=== PATIENT | female | born 1990 | race Caucasian/White ===

== ENCOUNTER 2017-04-19 11:55 | Outpatient (CLI) | payer MEDICAID, OTHER ==
[~2017-04-19] VITALS: Ht 152.4 cm; Wt 91.5 kg
[~2017-04-19 11:55] MED LIST: PREN1TAB82
[2017-04-19 12:32] VITALS: Ht 152.4 cm; Wt 91.5 kg
[2017-04-19 12:33] VITALS: BP 112/66; PULSE 88; RESP 18
--- NOTE | 2017-04-19 13:44 | RADRPT ---
PROCEDURE: US OB. CLINICAL INDICATION: Size and dates , PTL TECHNIQUE: Multiple sonographic images of the pelvis and gravid uterus were obtained. The images were reviewed on a PACS workstation. COMPARISON: No prior studies are available for comparison. FINDINGS: There is a single viable intrauterine gestation. Cardiac activity is present with 125 beats per min vega. There is a vertex presentation. The placenta is posterior. There is no evidence for an abruption or placenta previa. Measurements were made in order to determine age. The results are as follows: BPD =8.0 cm HC =28.3 cm AC =28.3 cm FL =6.1 cm Estimated gestational age of approximately 31 weeks and 6 days based on ultrasound measurements. Clinical age: 31 weeks and 4 days. The estimated date of delivery is 06/15/17, based on ultrasound measurements. The EFW = 1880 g, 52%, based on LMP age. RPTAT: AA IMPRESSION: Single viable intrauterine gestation of approximately 31 weeks and 6 days based on ultrasound measu rements. .Trell Lugo MD, MD Date Time Electronically viewed and signed by .Trell Lugo MD, on 04/19/2017 13:44 .S/
--- NOTE | 2017-04-19 13:49 | RADRPT ---
PROCEDURE: US OB biophysical profile. Ultrasound cervix CLINICAL INDICATION: decreased movements, PTL TECHNIQUE: Multiple sonographic images of the pelvis were obtained. In addition, transvaginal cherelle ges of the cervix were obtained. The images were reviewed on a PACS workstation. COMPARISON: No prior studies are available for comparison. FINDINGS: There is a single viable intrauterine gestation. Cardiac activity is present with 125 beats per justen te. There is a vertex presentation. The placenta is posterior. There is no evidence for an abruption or placenta previa. There is a normal amount of amniotic fluid with an MARY ALICE = 13.7 cm. The cervix measures 3..7 cm in length. Biophysical profile: movement 2/2 tone 2/2. breathing 2/2 MARY ALICE 2/2 Total 02/08 RPTAT: AA . IMPRESSION: Normal biophysical profile. Cervix measures 3.7 cm in length. .Trell Lugo MD, MD Date Time Electronically viewed and signed by .Trell Lugo MD, MD on 04/19/2017 13:49 .S/
--- NOTE | 2017-04-19 15:12 | TRIAGE ---
OB Triage Datetime Report Generated by CPN: 04/19/2017 15:12 Datetime: 04/19/2017 14:30 Stage of : OB Triage Maternal Assessment Level of Consciousness: Fully Conscious Labor Evaluation Frequency: NONE Monitor Mode: External Resting Tone [place]: Relaxed Heart Rate FHR Baseline Rate: 125 Monitor Mode: External US Variability: Moderate 6-25 bpm Accelerations: 15X15 Decelerations: None Pain Assessment Pain Scale: 7 Pain Presence: Constant Pain Type: Pressure Pain Location: Perineum Pain Goal: 3 Pain Relief Measures: Comfort Measures Vaginal Exam Membrane Status: Intact Vaginal Bleeding: None Datetime: 04/19/2017 13:30 Stage of : OB Triage Maternal Assessment Level of Consciousness: Fully Conscious Labor Evaluation Frequency: NONE Monitor Mode: External Resting Tone [place]: Relaxed Heart Rate FHR Baseline Rate: 125 Monitor Mode: External US Variability: Moderate 6-25 bpm Accelerations: 15X15 Decelerations: None Category: Category I Pain Assessment Pain Scale: 7 Pain Presence: Constant Pain Type: Pressure Pain Location: Perineum Pain Goal: 3 Pain Relief Measures: Comfort Measures Vaginal Exam Membrane Status: Intact Vaginal Bleeding: None Datetime: 04/19/2017 13:00 Pool: Negative Nitrazine: Negative Datetime: 04/19/2017 12:18 Stage of : OB Triage Assessment Type: Triage Maternal Assessment Level of Consciousness: Fully Conscious DTR's/Clonus: DTRs 2+; No Clonus Headache: Denies Blurred Vision: No Respiratory Effort: Unlabored; Regular Rhythm; Equal Expansion Breath Sounds, Left: Clear and Equal Breath Sounds, Right: Clear and Equal Nausea/Vomiting: Denies RUQ Epigastric Pain: Denies Lower Extremities Edema: Bilateral Lower Extremities Degree: 1+ Upper Extremities Edema: Bilateral Upper Extremities Degree: 1+ Facial Edema: None Temperature Route: Oral Fall Risk Assessment History of Falling: (0) No Secondary Diagnosis: (0) No Ambulatory Aid: (0) Bedrest/Nurse Assist IV Therapy: (0) No Gait: (0) Normal/Bedrest/Immobile Mental Status: (0) Oriented to Own Ability Fall Score: 0 Fall Risk Score Definition: No Risk: No action required Pain Assessment Pain Scale: 7 Pain Presence: None/Denies Pain Type: N/A Pain Location: Abdomen; Back; Perineum Pain Goal: 5 Datetime: 04/19/2017 12:12 Time of Arrival: 04/19/2017 12:12 EGA: 31.4 Arrived By: Ambulatory Arrived From: Home Movement: Present Contractions: Denies/Absent Rupture of Membranes: Unsure Vaginal Bleeding: None Vaginal Discharge: Present Recent Sexual Intercouse: Denies Abdominal Trauma: Not Applicable Patient Complaints: Back Pain; Other Time Provider Notified: 04/19/2017 12:44 Provider Notified: KEVAN Initial Plan: EFM, BPP, CVL, EFW, ROM PLUS, STERILE SPEC, NITRAZINE
--- NOTE | 2017-06-07 16:02 | PN ---
Triage Information Date/Time Reason for visit: Uterine contractions Weeks of Gestation 31 week 31 week /Para Diabetes: none Hypertention: none Objective Heart Rate: 130's Contractions: 6-10 Minutes Apart Exam Cervical length 3.7 MARY ALICE 13.7 BLADIMIR MATHUR MD Jun 07, 2017 16:02
== END 2017-04-19 15:15 | disposition home or self-care (01) ==
LOC: L-D 11:55 → OBT 11:55
PROVIDERS: ATTEND Obstetrics & Gynecology
DX: O62.9 Abnormality of forces of labor, unspecified (principal); Z3A.31 31 weeks gestation of pregnancy
CPT/HCPCS: 76815; 76817; 76818; 84112; Z7500; G0463

== ENCOUNTER 2017-05-21 20:24 | Outpatient (CLI) | payer OTHER ==
[~2017-05-21] VITALS: Ht 152.4 cm; Wt 99.4 kg
[2017-05-21 21:00] VITALS: BP 130/75; PULSE 96; RESP 18
[2017-05-21] MEDS ORDERED: LACTATED RINGER'S 1,000 ML IV SCH (21:16)
[2017-05-21] MEDS ORDERED: HYDROCODONE/APAP (5/325) TAB PO ONE (21:30)
[2017-05-21] MEDS ORDERED: ACETAMINOPHEN 1000MG/100ML IV 100 ML IVPB ONE (21:30)
[2017-05-21 21:46] LABS: BASOPHILS % 0.3 % (0.0-2.0); EOSINOPHILS # 0.1 10^3/ul (0.0-0.5); EOSINOPHILS % 1.7 % (0.0-7.0); HEMATOCRIT 34.5 % (37.0-47.0); HEMOGLOBIN 11.7 g/dl (12.0-16.0); LYMPHOCYTES # 1.6 10^3/ul (0.8-2.9); MEAN CORPUSCULAR HEMOGLOBIN 30.2 pg (29.0-33.0); MEAN CORPUSCULAR HGB CONC 33.9 g/dl (32.0-37.0); MEAN CORPUSCULAR VOLUME 88.9 fl (82.0-101.0); MEAN PLATELET VOLUME 11.2 fl (7.4-10.4); MONOCYTE # 0.5 10^3/ul (0.3-0.9); MONOCYTES % 7.8 % (0.0-11.0); NEUTROPHIL # 4.3 10^3/ul (1.6-7.5); NEUTROPHILS % 65.1 % (39.0-77.0); PLATELET COUNT 200 10^3/UL (140-415); RED BLOOD COUNT 3.88 10^6/ul (4.20-5.40); RED CELL DISTRIBUTION WIDTH 13.1 % (11.5-14.5); WHITE BLOOD COUNT 6.5 10^3/ul (4.8-10.8)
[2017-05-21 21:58] LABS: ADD UMIC YES; UR ASCORBIC ACID NEGATIVE (NEGATIVE); UR BACTERIA MODERATE /HPF (NONE SEEN); UR BILIRUBIN (Dip) NEGATIVE (NEGATIVE); UR BLOOD (Dip) NEGATIVE (NEGATIVE); UR CLARITY SLIGHTLY CLOUDY (CLEAR); UR COLOR YELLOW (YELLOW); UR GLUCOSE (Dip) 2+ mg/dL (NEGATIVE); UR KETONES (Dip) TRACE mg/dL (NEGATIVE); UR LEUKOCYTE ESTERASE (Dip) TRACE Leu/ul (NEGATIVE); UR NITRITE (Dip) NEGATIVE (NEGATIVE); UR RBC 1 /HPF (0-5); UR SPECIFIC GRAVITY (Dip) 1.013 (1.003-1.030); UR SQUAMOUS EPITHELIAL CELL FEW /HPF (FEW); UR TOTAL PROTEIN (Dip) NEGATIVE (NEGATIVE); UR UROBILINOGEN (Dip) 1+ mg/dL (NEGATIVE)
[2017-05-21] MEDS ORDERED: SOD CHLORIDE 0.9% 1,000 ML IV SCH (22:59)
[2017-05-21] MEDS ORDERED: CEFTRIAXONE 1 GM/50 ML (PMX) 50 ML IVPB ONE (23:00)
--- NOTE | 2017-05-22 00:26 | PN ---
Triage Information Date/Time May 22, 2017 Reason for visit: Headache, back pain, chest pain Weeks of Gestation 36w 2d /Para 2/1 Diabetes: none Hypertention: none Additional information Pt reports a runny nose, throat hurting, body aches today. She rated the pain at 7/10 on admit but states if she wasn't that she wouldn't have come in or taken anything. No nausea or vomiting or diarrhea. She also reports some swelling of the hand and they get numb at night when she is sleeping. PMHx: none. POBHx: x 1 and she had PIH. PSHx: none. NKDA. Objective Vital Signs Date Time Temp Pulse Resp B/P Pulse Ox O2 Delivery O2 Flow Rate FiO2 05/21/17 21:00 98.1 96 18 130/75 Room Air Intake and Output 05/21/17 05/21/17 05/22/17 14:59 22:59 06:59 Intake Total 500 ml 600 ml Balance 500 ml 600 ml Heart Rate: 130's Heart Rate Comments Accels to 170 bpm with no decels. Contractions: 6-10 Minutes Apart Exam closed/thick/high Results/Medications Result Diagram: 05/21/172131 Results 24 hrs Laboratory Tests Test 05/21/17 21:32 White Blood Count 6.5 Red Blood Count 3.88 L Hemoglobin 11.7 L Hematocrit 34.5 L Mean Corpuscular Volume 88.9 Mean Corpuscular Hemoglobin 30.2 Mean Corpuscular Hemoglobin Concent 33.9 Red Cell Distribution Width 13.1 Platelet Count 200 Mean Platelet Volume 11.2 H Neutrophils % 65.1 Lymphocytes % 24.0 Monocytes % 7.8 Eosinophils % 1.7 Basophils % 0.3 Nucleated Red Blood Cells % 0.0 Neutrophils # 4.3 Lymphocytes # 1.6 Monocytes # 0.5 Eosinophils # 0.1 Basophils # 0.0 Nucleated Red Blood Cells # 0.0 Urine Color YELLOW Urine Clarity SLIGHTLY CLOUDY A Urine pH 6.0 Urine Specific [place] 1.013 Urine Ketones TRACE A Urine Nitrite NEGATIVE Urine Bilirubin NEGATIVE Urine Urobilinogen 1+ H Urine Leukocyte Esterase TRACE A Urine Microscopic RBC 1 Urine Microscopic WBC 3 Urine Squamous Epithelial Cells FEW Urine Bacteria MODERATE Urine Hemoglobin NEGATIVE Urine Glucose 2+ H Urine Total Protein NEGATIVE Disposition: Discharge Assessment/Plan A: IUP at 36w 2d. Viral syndrome. P: Gave pt a liter of IVF's and one gram of IV Tylenol and the pt reported feeling much better. She was reassured that she has no signs of PIH at this time and so therefore the hand swelling is fairly normal in . U/A c/w possibly with a UTI so given one dose of IV Ancef and told pt to have her clinic check the cx results at her next visit. MARK BRAND MD May 22, 2017 00:26
--- NOTE | 2017-05-22 00:36 | TRIAGE ---
OB Triage Datetime Report Generated by CPN: 05/22/2017 00:35 Datetime: 05/22/2017 00:08 Stage of : OB Triage Pain Assessment Comments: PT STATES SHE FEEL MUCH BETTER Datetime: 05/22/2017 00:00 Labor Evaluation Frequency: 2-5 Monitor Mode: External Duration (sec)2399: 90-120 Quality: Mild Pattern: Normal: <= 5 Contractions in 10 Minutes Resting Tone [place]: Relaxed Heart Rate FHR Baseline Rate: 135 Monitor Mode: External US FHR Baseline Changes: No Baseline Change Variability: Moderate 6-25 bpm Accelerations: 15X15 Decelerations: None Category: Category I Datetime: 05/21/2017 23:00 Labor Evaluation Frequency: 2-8 Monitor Mode: External Duration (sec)2399: 90-120 Quality: Mild Pattern: Normal: <= 5 Contractions in 10 Minutes Resting Tone [place]: Relaxed Heart Rate FHR Baseline Rate: 125 Monitor Mode: External US FHR Baseline Changes: No Baseline Change Variability: Moderate 6-25 bpm Accelerations: 15X15 Decelerations: None Category: Category I Datetime: 05/21/2017 22:33 Stage of : OB Triage Datetime: 05/21/2017 22:00 Labor Evaluation Frequency: 2-7 Monitor Mode: External Duration (sec)2399: 40-120 Quality: Mild Pattern: Normal: <= 5 Contractions in 10 Minutes Resting Tone [place]: Relaxed Heart Rate FHR Baseline Rate: 135 Monitor Mode: External US FHR Baseline Changes: No Baseline Change Variability: Moderate 6-25 bpm Accelerations: 15X15 Decelerations: None Category: Category I Datetime: 05/21/2017 21:00 Labor Evaluation Frequency: 4-6 Monitor Mode: External Duration (sec)2399: 90-120 Quality: Mild Pattern: Normal: <= 5 Contractions in 10 Minutes Resting Tone [place]: Relaxed Heart Rate FHR Baseline Rate: 135 Monitor Mode: External US FHR Baseline Changes: No Baseline Change Variability: Moderate 6-25 bpm Accelerations: 15X15 Decelerations: None Category: Category I Vaginal Exam Dilatation (cms): 0.0 Effacement (%): 0 Station: -3 Exam By: Haroldo PARKER RN Vaginal Bleeding: None Cervix, Consistency: Firm Cervix, Position: Posterior Datetime: 05/21/2017 20:32 Stage of : OB Triage Maternal Assessment Level of Consciousness: Fully Conscious DTR's/Clonus: DTRs 2+; No Clonus Headache: Denies Blurred Vision: No Respiratory Effort: Unlabored; Regular Rhythm; Equal Expansion Breath Sounds, Left: Clear and Equal Breath Sounds, Right: Clear and Equal Nausea/Vomiting: Denies RUQ Epigastric Pain: Denies Lower Extremities Edema: Bilateral Lower Extremities Degree: 2+ Upper Extremities Edema: None Degree: None Facial Edema: None Temperature Route: Oral Fall Risk Assessment History of Falling: (0) No Secondary Diagnosis: (0) No Ambulatory Aid: (0) Bedrest/Nurse Assist IV Therapy: (0) No Gait: (0) Normal/Bedrest/Immobile Mental Status: (0) Oriented to Own Ability Fall Score: 0 Fall Risk Score Definition: No Risk: No action required Monitor Mode: External Monitor Mode: External US Pain Assessment Pain Presence: Constant Pain Type: Pressure (Annotations: HEADACHE FEELS LIKE PRESSURE BACK ACHE FEELS LIKE ACHING) Pain Location: Back; Head Datetime: 05/19/2017 08:57 Time of Arrival: 05/21/2017 20:32 EGA: 36.1 Arrived By: Wheelchair Arrived From: Home Chief Complaint: FLU Movement: Present Contractions: Irregular Rupture of Membranes: Denies Vaginal Bleeding: None Vaginal Discharge: Denies Recent Sexual Intercouse: Denies Abdominal Trauma: Not Applicable Patient Complaints: None Time Provider Notified: 05/21/2017 21:05 Provider Notified: DR BRAND Initial Plan: CALL TL POE Datetime: 04/19/2017 12:18 Fall Score: 0 Fall Risk Score Definition: No Risk: No action required Datetime: 04/19/2017 12:12 EGA: 31.4
--- NOTE | 2017-05-22 00:42 | TRIAGE ---
OB Triage Datetime Report Generated by CPN: 05/22/2017 00:42 Datetime: 05/19/2017 08:57 Chief Complaint: FLU= HEADACHE 04/12, THROAT HURTS/ RUNNY NOSE/ BACK PAIN 01/10, UPPER CHEST HURTS PT STATES SHE CAN'T BREATH/ NO C/O OF EPIGASTRIC PAIN OR DIZZYNESS
--- NOTE | 2017-05-22 00:45 | TRIAGE ---
OB Triage Datetime Report Generated by CPN: 05/22/2017 00:45 Datetime: 05/21/2017 20:32 Time of Arrival: 05/21/2017 20:32 EGA: 36.1 Arrived By: Wheelchair Arrived From: Home Chief Complaint: FLU= HEADACHE 04/12, THROAT HURTS/ RUNNY NOSE/ BACK PAIN 01/10, UPPER CHEST HURTS PT STATES SHE CAN'T BREATH/ NO C/O OF EPIGASTRIC PAIN OR DIZZYNESS Movement: Present Contractions: Irregular Rupture of Membranes: Denies Vaginal Bleeding: None Vaginal Discharge: Denies Recent Sexual Intercouse: Denies Abdominal Trauma: Not Applicable Patient Complaints: None Time Provider Notified: 05/21/2017 21:05 Provider Notified: DR BRAND Initial Plan: CALL , EFM Fall Score: 0 Fall Risk Score Definition: No Risk: No action required
[2017-05-23] MEDS ORDERED: LACTATED RINGER'S 1,000 ML IV SCH (21:16)
== END 2017-05-22 00:13 | disposition home or self-care (01) ==
LOC: L-D 20:24 → OBT 20:24
PROVIDERS: ATTEND Obstetrics & Gynecology
DX: O98.513 Other viral diseases complicating pregnancy, third trimester (principal); Z3A.36 36 weeks gestation of pregnancy
CPT/HCPCS: 36415; 81001; 85025; 87086; 96360; 96361; 96375; J0131; J0696; J7030; J7120; Z7500; G0463

== ENCOUNTER 2017-05-27 03:40 | Outpatient (CLI) | payer OTHER ==
[~2017-05-27] VITALS: Ht 152.4 cm; Wt 100.3 kg
[2017-05-27 04:18] VITALS: BP 122/69; PULSE 106; RESP 18
[2017-05-27 04:50] LABS: BASOPHILS % 0.4 % (0.0-2.0); EOSINOPHILS # 0.1 10^3/ul (0.0-0.5); EOSINOPHILS % 1.4 % (0.0-7.0); HEMATOCRIT 33.5 % (37.0-47.0); HEMOGLOBIN 11.4 g/dl (12.0-16.0); LYMPHOCYTES # 1.9 10^3/ul (0.8-2.9); LYMPHOCYTES % 23.4 % (15.0-51.0); MEAN CORPUSCULAR HEMOGLOBIN 30.3 pg (29.0-33.0); MEAN CORPUSCULAR VOLUME 89.1 fl (82.0-101.0); MEAN PLATELET VOLUME 11.3 fl (7.4-10.4); MONOCYTE # 0.6 10^3/ul (0.3-0.9); NEUTROPHIL # 5.2 10^3/ul (1.6-7.5); NEUTROPHILS % 66.3 % (39.0-77.0); PLATELET COUNT 211 10^3/UL (140-415); RED BLOOD COUNT 3.76 10^6/ul (4.20-5.40); RED CELL DISTRIBUTION WIDTH 13.5 % (11.5-14.5); WHITE BLOOD COUNT 7.9 10^3/ul (4.8-10.8)
--- NOTE | 2017-05-27 04:50 | RADRPT ---
PROCEDURE: Biophysical profile with amniotic fluid index CLINICAL INDICATION: Contractions TECHNIQUE: Color and seo-scale ultrasound images of an intrauterine gestation were obtained. COMPARISON: 05/25/2017 FINDINGS: A single live intrauterine gestation is identified in cephalic position with an estimated hear t rate of 128 beats per minute. The placenta is posterior and grade 2. MARY ALICE is 14.1 cm. movement 2/2. tone 2/2. breathing movement 2/2. Qualitative AFV 2/2 Total biophysical profile 02/08 IMPRESSION: 02/08 biophysical profile. RPTAT: HJES .Mushtaq Bates MD, Date Time Electronically viewed and signed by .Mushtaq Bates MD, on 05/27/2017 04:50 .S/
[2017-05-27 04:53] LABS: ADD UMIC YES; UR ASCORBIC ACID NEGATIVE (NEGATIVE); UR BACTERIA MODERATE /HPF (NONE SEEN); UR BILIRUBIN (Dip) NEGATIVE (NEGATIVE); UR BLOOD (Dip) NEGATIVE (NEGATIVE); UR CLARITY SLIGHTLY CLOUDY (CLEAR); UR COLOR YELLOW (YELLOW); UR GLUCOSE (Dip) NEGATIVE (NEGATIVE); UR KETONES (Dip) NEGATIVE (NEGATIVE); UR LEUKOCYTE ESTERASE (Dip) 1+ Leu/ul (NEGATIVE); UR MUCUS FEW /HPF (NONE SEEN); UR NITRITE (Dip) NEGATIVE (NEGATIVE); UR RBC 0 /HPF (0-5); UR SPECIFIC GRAVITY (Dip) 1.015 (1.003-1.030); UR SQUAMOUS EPITHELIAL CELL MODERATE /HPF (FEW); UR TOTAL PROTEIN (Dip) NEGATIVE (NEGATIVE); UR UROBILINOGEN (Dip) 1+ mg/dL (NEGATIVE)
[2017-05-27 05:10] LABS: ALBUMIN 3.2 g/dl (3.3-4.9); BILIRUBIN,INDIRECT 0.2 mg/dl (0-1.1); BILIRUBIN,TOTAL 0.2 mg/dl (0.2-1.3); CALCIUM 8.7 mg/dl (8.4-10.2); CREATININE 0.48 mg/dl (0.44-1.00); POTASSIUM 3.6 mmol/L (3.5-5.1); TOTAL PROTEIN 6.4 g/dl (6.1-8.1); URIC ACID 4.4 mg/dl (3.1-7.9)
--- NOTE | 2017-05-27 05:44 | TRIAGE ---
OB Triage Datetime Report Generated by CPN: 05/27/2017 05:44 Datetime: 05/27/2017 05:24 Frequency: 0 Monitor Mode: External Resting Tone [place]: Relaxed FHR Baseline Rate: 115 Monitor Mode: External US Variability: Moderate 6-25 bpm Accelerations: 15X15 Decelerations: None Category: Category I Datetime: 05/27/2017 05:21 Stage of : OB Triage Datetime: 05/27/2017 03:58 Dilatation (cms): 0.0 Effacement (%): 0 Station: -3 Exam By: Tanna PRINGLE Vaginal Bleeding: None Cervix, Consistency: Firm Cervix, Position: Posterior Presentation 'A': Cephalic Datetime: 05/27/2017 03:56 Stage of : OB Triage Time of Arrival: 05/27/2017 03:27 EGA: 37.0 Arrived By: Wheelchair Arrived From: Home Chief Complaint: ucs, back pain ble svelling Movement: Present Contractions: Irregular Time Contractions Began: 05/26/2017 09:00 Contractions: q15-20 Rupture of Membranes: Denies Vaginal Bleeding: Normal Show Vaginal Discharge: Denies Recent Sexual Intercouse: Denies Abdominal Trauma: Not Applicable Patient Complaints: Contractions Additional Patient Complaints: Pt states that on last visit to triage, she was sent home with a 24 hr urine collection, which she did not completes because it made her nauseous and she vomited when trying to collect Time Provider Notified: 05/27/2017 03:30 Provider Notified: annie Initial Plan: VS, EFM, SVE, CBC, CMP, URIC ACID, BPP Datetime: 05/27/2017 03:50 Assessment Type: Triage Level of Consciousness: Fully Conscious DTR's/Clonus: DTRs 1+; No Clonus Headache: Generalized Blurred Vision: No Respiratory Effort: Unlabored Breath Sounds, Left: Clear and Equal Breath Sounds, Right: Clear and Equal Nausea/Vomiting: Denies RUQ Epigastric Pain: Denies Lower Extremities Edema: Bilateral Lower Extremities Degree: 2+ Upper Extremities Edema: None Degree: None Facial Edema: None History of Falling: (0) No Secondary Diagnosis: (15) Yes (Annotations: PIH 1ST ) Ambulatory Aid: (0) Bedrest/Nurse Assist IV Therapy: (0) No Gait: (0) Normal/Bedrest/Immobile Mental Status: (0) Oriented to Own Ability Fall Score: 15 Fall Risk Score Definition: No Risk: No action required Datetime: 05/27/2017 03:44 Stage of : OB Triage Monitor Mode: External Monitor Mode: External US Datetime: 05/21/2017 20:32 EGA: 36.1 Fall Score: 0 Fall Risk Score Definition: No Risk: No action required
--- NOTE | 2017-05-27 06:19 | PN ---
Triage Information Date/Time 05/27/17 Reason for visit: bilateral lower ext swelling Weeks of Gestation 37w /Para Diabetes: none Hypertention: none Additional information APT for PIH last one 2days ago Objective Vital Signs Date Time Temp Pulse Resp B/P Pulse Ox O2 Delivery O2 Flow Rate FiO2 05/27/17 04:18 98.3 106 18 122/69 Room Air Heart Rate: 120's Contractions: None Exam Cx cliosed /long/high Results/Medications Result Diagram: 05/27/17 0333 05/27/17 0333 Results 24 hrs Laboratory Tests Test 05/27/17 03:33 White Blood Count 7.9 # Red Blood Count 3.76 L Hemoglobin 11.4 L Hematocrit 33.5 L Mean Corpuscular Volume 89.1 Mean Corpuscular Hemoglobin 30.3 Mean Corpuscular Hemoglobin Concent 34.0 Red Cell Distribution Width 13.5 Platelet Count 211 Mean Platelet Volume 11.3 H Neutrophils % 66.3 Lymphocytes % 23.4 Monocytes % 7.0 Eosinophils % 1.4 Basophils % 0.4 Nucleated Red Blood Cells % 0.0 Neutrophils # 5.2 Lymphocytes # 1.9 Monocytes # 0.6 Eosinophils # 0.1 Basophils # 0.0 Nucleated Red Blood Cells # 0.0 Urine Color YELLOW Urine Clarity SLIGHTLY CLOUDY A Urine pH 6.0 Urine Specific [place] 1.015 Urine Ketones NEGATIVE Urine Nitrite NEGATIVE Urine Bilirubin NEGATIVE Urine Urobilinogen 1+ H Urine Leukocyte Esterase 1+ H Urine Microscopic RBC 0 Urine Microscopic WBC 3 Urine Squamous Epithelial Cells MODERATE Urine Bacteria MODERATE Urine Mucus FEW A Urine Hemoglobin NEGATIVE Urine Glucose NEGATIVE Urine Total Protein NEGATIVE Sodium Level 138 Potassium Level 3.6 Chloride Level 106 Carbon Dioxide Level 23 Anion Gap 13 Blood Urea Nitrogen 9 Creatinine 0.48 Glucose Level 99 Uric Acid 4.4 Calcium Level 8.7 Total Bilirubin 0.2 Direct Bilirubin 0.00 Indirect Bilirubin 0.2 Aspartate Amino Transf (AST/SGOT) 20 Alanine Aminotransferase (ALT/SGPT) 29 Alkaline Phosphatase 166 H Total Protein 6.4 Albumin 3.2 L Globulin 3.20 Albumin/Globulin Ratio 1.00 Imaging Results BPP 8/8 MARY ALICE 14.1 Disposition: Discharge Assessment/Plan A IUP 37w edema BLE P f/u at clinic sat RTH prn with labor instructions TAM CAMARENA MD May 27, 2017 06:19
== END 2017-05-27 05:36 | disposition home or self-care (01) ==
LOC: L-D 03:40 → OBT 03:40
PROVIDERS: ATTEND Obstetrics & Gynecology
DX: O26.893 Other specified pregnancy related conditions, third trimester (principal); R60.0 Localized edema; Z3A.37 37 weeks gestation of pregnancy
CPT/HCPCS: 76818; 80053; 81001; 84560; 85025; G0463

== ENCOUNTER 2017-06-05 18:51 | Outpatient (CLI) | payer OTHER ==
[~2017-06-05] VITALS: Ht 152.4 cm; Wt 102.2 kg
[2017-06-05 19:17] VITALS: Ht 152.4 cm; Wt 102.2 kg
[2017-06-05 20:06] LABS: BASOPHILS % 0.5 % (0.0-2.0); EOSINOPHILS # 0.1 10^3/ul (0.0-0.5); EOSINOPHILS % 0.9 % (0.0-7.0); HEMATOCRIT 34.2 % (37.0-47.0); HEMOGLOBIN 11.7 g/dl (12.0-16.0); LYMPHOCYTES # 1.8 10^3/ul (0.8-2.9); LYMPHOCYTES % 26.8 % (15.0-51.0); MEAN CORPUSCULAR HEMOGLOBIN 30.1 pg (29.0-33.0); MEAN CORPUSCULAR HGB CONC 34.2 g/dl (32.0-37.0); MEAN CORPUSCULAR VOLUME 87.9 fl (82.0-101.0); MEAN PLATELET VOLUME 11.6 fl (7.4-10.4); MONOCYTE # 0.5 10^3/ul (0.3-0.9); MONOCYTES % 7.8 % (0.0-11.0); NEUTROPHIL # 4.1 10^3/ul (1.6-7.5); NEUTROPHILS % 62.6 % (39.0-77.0); PLATELET COUNT 198 10^3/UL (140-415); RED BLOOD COUNT 3.89 10^6/ul (4.20-5.40); RED CELL DISTRIBUTION WIDTH 13.5 % (11.5-14.5); WHITE BLOOD COUNT 6.6 10^3/ul (4.8-10.8)
[2017-06-05 20:19] LABS: ADD UMIC YES; UR ASCORBIC ACID NEGATIVE (NEGATIVE); UR BACTERIA MODERATE /HPF (NONE SEEN); UR BILIRUBIN (Dip) NEGATIVE (NEGATIVE); UR BLOOD (Dip) NEGATIVE (NEGATIVE); UR CLARITY CLEAR (CLEAR); UR COLOR STRAW (YELLOW); UR GLUCOSE (Dip) 1+ mg/dL (NEGATIVE); UR KETONES (Dip) NEGATIVE (NEGATIVE); UR LEUKOCYTE ESTERASE (Dip) TRACE Leu/ul (NEGATIVE); UR NITRITE (Dip) NEGATIVE (NEGATIVE); UR RBC 0 /HPF (0-5); UR SPECIFIC GRAVITY (Dip) 1.009 (1.003-1.030); UR SQUAMOUS EPITHELIAL CELL FEW /HPF (FEW); UR TOTAL PROTEIN (Dip) NEGATIVE (NEGATIVE); UR UROBILINOGEN (Dip) NEGATIVE (NEGATIVE)
--- NOTE | 2017-06-05 20:28 | RADRPT ---
PROCEDURE: OB ultrasound for biophysical profile CLINICAL INDICATION: Decreased movement. TECHNIQUE: Multiple sonographic images of the gravid uterus performed. The images were reviewed on a PACS workstation. COMPARISON: 05/27/2017 FINDINGS: A single live intrauterine is identified with heart rate of 143 bpm. Fet us is in a cephalic presentation. Placenta is located right lateral. Biophysical profile: breathing movement = 2/2 tone = 2/2 motion = 2/2 MARY ALICE = 2/2 MARY ALICE = 20.8 cm. IMPRESSION: 1. Single live intrauterine gestation. 2. Biophysical profile = 8/8. 3. MARY ALICE = 20.8 cm. RPTAT: HMVK .Deni Noriega MD, Date Time Electronically viewed and signed by .Deni Noriega MD, MD on 06/05/2017 20:27 .K/
[2017-06-05 20:30] LABS: ALBUMIN/GLOBULIN RATIO 0.9; BILIRUBIN,INDIRECT 0.2 mg/dl (0-1.1); BILIRUBIN,TOTAL 0.2 mg/dl (0.2-1.3); CALCIUM 9.1 mg/dl (8.4-10.2); CREATININE 0.45 mg/dl (0.44-1.00); POTASSIUM 3.7 mmol/L (3.5-5.1); TOTAL PROTEIN 6.3 g/dl (6.1-8.1)
--- NOTE | 2017-06-05 21:28 | TRIAGE ---
OB Triage Datetime Report Generated by CPN: 06/05/2017 21:28 Datetime: 06/05/2017 21:16 Stage of : OB Triage Datetime: 06/05/2017 21:00 Heart Rate FHR Baseline Rate: 135 Monitor Mode: External US FHR Baseline Changes: No Baseline Change Variability: Moderate 6-25 bpm Accelerations: 15X15 Datetime: 06/05/2017 20:00 Labor Evaluation Frequency: X2 Monitor Mode: External Duration (sec)2399: 60 Pattern: Normal: <= 5 Contractions in 10 Minutes Heart Rate FHR Baseline Rate: 145 Monitor Mode: External US FHR Baseline Changes: No Baseline Change Variability: Moderate 6-25 bpm Accelerations: 15X15 Category: Category I Comments: NST REACTIVE Datetime: 06/05/2017 19:34 Stage of : OB Triage Datetime: 06/05/2017 19:30 Stage of : OB Triage Assessment Type: Triage Maternal Assessment Level of Consciousness: Fully Conscious Headache: Denies Blurred Vision: No Respiratory Effort: Unlabored; Regular Rhythm; Equal Expansion Nausea/Vomiting: Denies RUQ Epigastric Pain: Denies Facial Edema: None Fall Risk Assessment History of Falling: (0) No Secondary Diagnosis: (0) No Ambulatory Aid: (0) Bedrest/Nurse Assist IV Therapy: (0) No Gait: (0) Normal/Bedrest/Immobile Mental Status: (0) Oriented to Own Ability Fall Score: 0 Fall Risk Score Definition: No Risk: No action required Datetime: 06/05/2017 19:28 Monitor Mode: Palpation Resting Tone [place]: Relaxed Contraction Comments: ABD SOFT, TENDER AT UMBILICUS Datetime: 06/05/2017 19:23 Vaginal Exam Dilatation (cms): 0.0 Effacement (%): 30 Station: -4 Exam By: PILI VELASQUEZ Vaginal Bleeding: None Cervix, Consistency: Soft Cervix, Position: Posterior Presentation 'A': Unable to Assess Datetime: 06/05/2017 19:22 Monitor Mode: Palpation Resting Tone [place]: Relaxed Contraction Comments: ABD SOFT, TENDER AT UMBILICUS/LEFT OF UMBILICUS Datetime: 06/05/2017 19:10 Assessment Type: Triage Maternal Assessment Level of Consciousness: Fully Conscious DTR's/Clonus: DTRs 2+; No Clonus Headache: Denies Blurred Vision: No Respiratory Effort: Unlabored; Regular Rhythm; Equal Expansion Breath Sounds, Left: Clear and Equal Breath Sounds, Right: Clear and Equal Nausea/Vomiting: Denies RUQ Epigastric Pain: Denies Lower Extremities Edema: Bilateral Lower Extremities Degree: Pitting Upper Extremities Edema: None Degree: None Facial Edema: None Fall Risk Assessment History of Falling: (0) No Secondary Diagnosis: (0) No Ambulatory Aid: (0) Bedrest/Nurse Assist IV Therapy: (0) No Gait: (0) Normal/Bedrest/Immobile Mental Status: (0) Oriented to Own Ability Fall Score: 0 Fall Risk Score Definition: No Risk: No action required Datetime: 06/05/2017 18:54 Time of Arrival: 06/05/2017 18:54 EGA: 38.2 Arrived By: Ambulatory Chief Complaint: PT CAME IN C/O OF UPPER LEFT SIDE PAIN, DFM, AND LEFT LEG SWELLING AT THIS TIME. PLACED ON EFM X 2 Movement: Decreased Contractions: Denies/Absent Rupture of Membranes: Denies Vaginal Bleeding: None Vaginal Discharge: Present Recent Sexual Intercouse: Denies Abdominal Trauma: Not Applicable Patient Complaints: Other Time Provider Notified: 06/05/2017 19:34 Provider Notified: THOMASE Datetime: 05/27/2017 03:56 EGA: 37.0 Datetime: 05/27/2017 03:50 Fall Score: 15 Fall Risk Score Definition: No Risk: No action required Datetime: 05/21/2017 20:32 EGA: 36.1 Fall Score: 0 Fall Risk Score Definition: No Risk: No action required Datetime: 04/19/2017 12:18 Fall Score: 0 Fall Risk Score Definition: No Risk: No action required Datetime: 04/19/2017 12:12 EGA: 31.4
--- NOTE | 2017-06-05 21:36 | PN ---
Triage Information Date/Time Jun 05, 2017 Reason for visit: Abd/pelvic pain Weeks of Gestation 38w 2d /Para 2/1 Diabetes: none Hypertention: none Additional information Pt reports left mid abdominal pain x 6 days. She reports that it started out mild and has gotten stronger over the last few days. It is not present all the time however. It does increase when walking. She has had BM's and normal voiding. No fever, chills, JOHNSON's or other problems. Objective BP 119/69 T= 98.3 Heart Rate: 130's Contractions: None Exam Closed/ 30%/-4. Fundus tender in a particular area on the left fundus. Results/Medications Result Diagram: 06/05/17195106/05/171951 Results 24 hrs Laboratory Tests Test 06/05/17 19:00 06/05/17 19:52 Urine Color STRAW Urine Clarity CLEAR Urine pH 7.0 Urine Specific [place] 1.009 Urine Ketones NEGATIVE Urine Nitrite NEGATIVE Urine Bilirubin NEGATIVE Urine Urobilinogen NEGATIVE Urine Leukocyte Esterase TRACE A Urine Microscopic RBC 0 Urine Microscopic WBC 1 Urine Squamous Epithelial Cells FEW Urine Bacteria MODERATE Urine Hemoglobin NEGATIVE Urine Glucose 1+ H Urine Total Protein NEGATIVE White Blood Count 6.6 Red Blood Count 3.89 L Hemoglobin 11.7 L Hematocrit 34.2 L Mean Corpuscular Volume 87.9 Mean Corpuscular Hemoglobin 30.1 Mean Corpuscular Hemoglobin Concent 34.2 Red Cell Distribution Width 13.5 Platelet Count 198 Mean Platelet Volume 11.6 H Neutrophils % 62.6 Lymphocytes % 26.8 Monocytes % 7.8 Eosinophils % 0.9 Basophils % 0.5 Nucleated Red Blood Cells % 0.0 Neutrophils # 4.1 Lymphocytes # 1.8 Monocytes # 0.5 Eosinophils # 0.1 Basophils # 0.0 Nucleated Red Blood Cells # 0.0 Sodium Level 138 Potassium Level 3.7 Chloride Level 106 Carbon Dioxide Level 25 Anion Gap 11 Blood Urea Nitrogen 7 Creatinine 0.45 Glucose Level 91 Calcium Level 9.1 Total Bilirubin 0.2 Direct Bilirubin 0.00 Indirect Bilirubin 0.2 Aspartate Amino Transf (AST/SGOT) 20 Alanine Aminotransferase (ALT/SGPT) 26 Alkaline Phosphatase 171 H Total Protein 6.3 Albumin 3.0 L Globulin 3.30 H Albumin/Globulin Ratio 0.90 Imaging Results BPP 8/8 with an MARY ALICE of 20.8 cm. VTX. Disposition: Discharge Assessment/Plan A: IUP at 38w 2d. Left mid abdominal pain, unclear origin. P: D/C home. F/U with her doctor tomorrow; she already has an appt. MARK BRAND MD Jun 05, 2017 21:36
[2017-06-11] MEDS ORDERED: OXYTOCIN 30 UNITS/LR 500 ML IV ONE (17:08)
== END 2017-06-05 21:30 | disposition home or self-care (01) ==
LOC: OBT 18:51 → L-D 18:53 → OBT 21:30
PROVIDERS: ATTEND Obstetrics & Gynecology
DX: O26.893 Other specified pregnancy related conditions, third trimester (principal); Z3A.38 38 weeks gestation of pregnancy; R10.32 Left lower quadrant pain
CPT/HCPCS: 76818; 80053; 81001; 85025; Z7500; G0463

== ENCOUNTER 2017-06-09 16:00 | Inpatient (IN) | payer OTHER ==
[~2017-06-09] VITALS: Ht 152.4 cm; Wt 101.8 kg
[2017-06-09] MEDS ORDERED: METHYLERGONOVINE 0.2 MG INJ IM PRN (17:30)
[2017-06-09] MEDS ORDERED: OXYTOCIN 30 UNITS/LR 500 ML IV SCH ×2 (17:30)
[2017-06-09] MEDS ORDERED: DINOPROSTONE 10 MG VAG SUPP VAG ONE (17:30)
[2017-06-09] MEDS ORDERED: IBUPROFEN 600 MG TAB PO PRN (17:30)
[2017-06-09] MEDS ORDERED: MISOPROSTOL 200 MCG TAB PR PRN (17:30)
[2017-06-09] MEDS ORDERED: CARBOPROST 250 MCG INJ IM PRN (17:30)
[2017-06-09] MEDS ORDERED: BUTORPHANOL 2 MG INJ IV PRN ×2 (17:30)
[2017-06-09] MEDS ORDERED: LIDOCAINE 1% (MPF) 30 ML INJ INJ PRN (17:30)
[2017-06-09] MEDS ORDERED: OXYTOCIN 30 UNITS/LR 500 ML IV PRN (17:30)
--- NOTE | 2017-06-09 17:45 | RADRPT ---
PROCEDURE: US OB. CLINICAL INDICATION: Labor induction. TECHNIQUE: Multiple sonographic images of the pelvis were obtained. Transabdominal imaging only w as performed. The images were reviewed on a PACS workstation. COMPARISON: No prior studies are available for comparison. FINDINGS: There is a single living intrauterine gestation in cephalic position. There is an posterior placenta. There is no evidence of previa. Qualitatively, amniotic fluid is seen. Active cardiac motion is seen at 129 beats per minute. The biparietal diameter is 9.7 cm. The head circumference is 34.15 cm. The abdominal circumference is 35.93 cm. The femur length is 7.65 cm. Consistent with: 42-dcxu-6-day gestation Estimated weight is 3841 plus or minus 576 g pain IMPRESSION: 1. Single living intrauterine gestation in cephalic position with a mean gestational age by ultraso und of 39 weeks 4 days plus or minus 19-day with estimated date of delivery of 06/12/2017 by ultraso und criteria. 2. Estimated weight is 3841 plus or minus 576 g. RPTAT: [facility] Physician Samina Date Time Electronically viewed and signed by Physician Samina on 06/09/2017 17:45 /
--- NOTE | 2017-06-09 17:49 | RADRPT ---
PROCEDURE: OB ultrasound for biophysical profile CLINICAL INDICATION: Induction of labor. TECHNIQUE: Multiple sonographic images of the pelvis were obtained. Transabdominal view of the gr avid uterus are available for review. The images were reviewed on a PACS workstation. COMPARISON: OB ultrasound from the same date. FINDINGS: breathing movement = 2/2 tone = 2/2 motion = 2/2 Quantitative amniotic fluid volume = 2/2 MARY ALICE = 16.4 cm Single live intrauterine with cardiac activity at 126 beats per minute. There is a posterior placenta without previa or abruption. IMPRESSION: 1. Single living intrauterine gestation in cephalic position. 2. Biophysical profile = 8/8. 3. MARY ALICE = 16.4 cm. RPTAT: [facility] Physician Samina Date Time Electronically viewed and signed by Physician Samina on 06/09/2017 17:49 /
[2017-06-09] MEDS: LACTATED RINGER'S 1,000 ML IV SCH (17:59)
[2017-06-09 18:02] VITALS: BMI 96.4
[2017-06-09 18:05] VITALS: BP 124/75; PULSE 87; RESP 19
[2017-06-09 18:11] LABS: INR 0.88; PT RATIO 0.9
[2017-06-09 18:12] LABS: PARTIAL THROMBOPLASTIN TIME 26.3 Sec (25.0-35.0)
[2017-06-09 18:46] LABS: BASOPHILS % 0.3 % (0.0-2.0); EOSINOPHILS % 0.5 % (0.0-7.0); HEMATOCRIT 35.4 % (37.0-47.0); HEMOGLOBIN 12.1 g/dl (12.0-16.0); LYMPHOCYTES # 1.8 10^3/ul (0.8-2.9); LYMPHOCYTES % 23.1 % (15.0-51.0); MEAN CORPUSCULAR HGB CONC 34.2 g/dl (32.0-37.0); MEAN CORPUSCULAR VOLUME 87.6 fl (82.0-101.0); MEAN PLATELET VOLUME 12.5 fl (7.4-10.4); MONOCYTE # 0.5 10^3/ul (0.3-0.9); MONOCYTES % 6.9 % (0.0-11.0); NEUTROPHIL # 5.3 10^3/ul (1.6-7.5); PLATELET COUNT 206 10^3/UL (140-415); RED BLOOD COUNT 4.04 10^6/ul (4.20-5.40); RED CELL DISTRIBUTION WIDTH 13.5 % (11.5-14.5); WHITE BLOOD COUNT 7.7 10^3/ul (4.8-10.8)
[2017-06-09 20:52] VITALS: Ht 152.4 cm; Wt 101.8 kg
[2017-06-10] MEDS: LACTATED RINGER'S 1,000 ML IV SCH ×4 (00:35→21:41)
[2017-06-10] MEDS: MISOPROSTOL 25 MCG CAPSULE PO SCH ×4 (08:52→21:40)
[2017-06-11] MEDS ORDERED: OXYTOCIN 30 UNITS/LR 500 ML IV SCH ×2 (00:30→18:22)
[2017-06-11] MEDS: LACTATED RINGER'S 1,000 ML IV SCH ×3 (05:33→18:22)
[2017-06-11] MEDS ORDERED: CEFAZOLIN 2 GM/50 ML (PMX) 50 ML IVPB ONE (13:30)
[2017-06-11] MEDS ORDERED: ONDANSETRON 4 MG INJ IV STA (14:37)
[2017-06-11] MEDS ORDERED: CITRIC ACID/SODIUM CITRATE 15 ML CUP ONE (14:43)
[2017-06-11] MEDS ORDERED: CITRIC ACID/SODIUM CITRATE 15 ML CUP PO ONE (15:00)
[2017-06-11] MEDS ORDERED: morphine SULFATE/PF (10 MG/10 ML) INJ ONE (15:09)
[2017-06-11] MEDS ORDERED: METOCLOPRAMIDE 10 MG INJ ONE (15:09)
[2017-06-11] MEDS ORDERED: FENTAnyl 50 MCG/ML VIAL ONE (15:09)
[2017-06-11] MEDS ORDERED: PHENYLephrine (100 MCG/ML) 5ML SYG ONE (15:10)
[2017-06-11] MEDS ORDERED: OXYTOCIN 10 UNIT INJ ONE (15:10)
[2017-06-11] MEDS ORDERED: ALBUTEROL 0.083% (NEB) 2.5 MG/3 ML AMP HHN PRN (16:00)
[2017-06-11] MEDS ORDERED: morphine 2 MG INJ IV PRN (16:00)
[2017-06-11] MEDS ORDERED: NALOXONE (0.4 MG/ML) INJ IV PRN (16:00)
[2017-06-11] MEDS ORDERED: DIPHENHYDRAMINE 50 MG INJ IV PRN ×3 (16:00→18:30)
[2017-06-11] MEDS ORDERED: KETOROLAC 30 MG INJ IV PRN (16:00)
[2017-06-11] MEDS ORDERED: morphine 4 MG/ML VIAL IV PRN (16:00)
[2017-06-11] MEDS ORDERED: OXYCODONE/ACETAMINOPHEN (5/325) TAB PO PRN ×6 (16:00→18:30)
[2017-06-11] MEDS ORDERED: EPHEDrine SULFATE 50 MG/5 ML SYG IV PRN (16:00)
[2017-06-11] MEDS ORDERED: NALBUPHINE HCL (10 MG/1 ML) INJ IV PRN (16:00)
[2017-06-11] MEDS ORDERED: MEPERIDINE 25 MG INJ IV PRN ×2 (16:00→18:30)
[2017-06-11] MEDS ORDERED: LABETALOL HCL 20MG INJ IV PRN ×2 (16:00→18:30)
[2017-06-11] MEDS ORDERED: hydrALAzine 20 MG INJ IV PRN (16:00)
[2017-06-11] MEDS ORDERED: FENTAnyl 50 MCG/ML VIAL IV PRN ×3 (16:00)
[2017-06-11] MEDS ORDERED: TRIMETHOBENZAMIDE 100 MG/ML VIAL IM PRN ×3 (16:00→18:30)
[2017-06-11] MEDS ORDERED: IPRATROPIUM (NEB) 0.5 MG/2.5 ML AMP HHN PRN (16:00)
[2017-06-11] MEDS ORDERED: HYDROmorphONE (0.2 MG/ML) 10ML SYG IV PRN ×6 (16:00→18:30)
[2017-06-11] MEDS ORDERED: ONDANSETRON 4 MG INJ IV PRN ×3 (16:00→18:30)
--- NOTE | 2017-06-11 16:27 | HP ---
Date/Time of Note Date/Time of Note DATE: 06/11/17 TIME: 16:24 OB - History Hx of Present Chief Complaint: macrosomia Estimated Due Date: Jun 17, 2017 : 2 Para: 1 Spontaneous : 0 Therapeutic : 0 Care: Good Care Ultrasounds: Normal mid trimester US Obstetrical Complications: None Medical Complications: None Past Family/Social History * Past Medical, Surgical, Family and Obstetric Histories reviewed from chart. GBS Status: Negative OB Admission Exam Vital Signs Vital Signs Vital Signs Date Time Temp Pulse Resp B/P Pulse Ox O2 Delivery O2 Flow Rate FiO2 06/09/17 18:05 98.5 87 19 124/75 96 Room Air Physical Exam HEENT: WNL Heart: Rhythm Normal Lungs: Clear, Equal Abdomen: WNL Extremities: Normal Reflexes: Normal Cervical Dilatation: None Effacement: 25% Station: -3 Membranes: Intact Heart Rate: 120's Accelerations: Accelerations Present Decelerations: No Decelerations Varibility: Moderate Last 72 hours Lab Results CBC & BMP 06/09/17 16:40 OB Assessment/Plan Reason for admission: induction of labor Other Assessment: suspected macrosomia Plan: Induction Induction Method: per Misoprostol Protocol SIS BRAXTON MD Jun 11, 2017 16:27
--- NOTE | 2017-06-11 16:31 | QN ---
Documentation Comment Patient has received Cervidil, Cytotec and oxytocin for induction of labor but cervix remains unfavorable with presenting part out of the pelvis. Patient is with cephalopelvic disproportion and failure to dilate. Patient is counseled about the option of delivery by primary . Risks, benefits and alternatives of the procedure were explained to the patient who stated she understood and gave informed consent for the procedure. SIS BRAXTON MD Jun 11, 2017 16:31
--- NOTE | 2017-06-11 16:37 | OPR ---
Operative Report Planned Procedure Procedure date Jun 11, 2017 Procedure(s) Primary low transverse Performed by Sis Braxton MD Button Tufter Dr Palomares Anesthesiologist: Amado Aguiar M.D. Pre-procedure diagnosis Cephalopelvic disproportion, failure to dilate Anesthesia Type: spinal Post-Procedure Post-procedure diagnosis Same Findings Live Baby [], Apgars [] and [], weight [], position [], [] presentation []cord. Estimated Blood Loss: 600 - 700 mls (600 ml) Specimen(s) Placenta Grafts/Implant(s) none Complication(s) none Pt Condition post procedure: stable Disposition: PACU Procedure Description After spinal anesthesia had been dosed and tested, the patient was placed supine on the Operating Room table and prepped and draped in the usual sterile fashion for a section. A Pfannenstiel incision was made through the abdomen and carried down to the level of the fascia. The fascia was incised transversely and then the rectus muscle was dissected off the fascia and split bluntly in the midline. The peritoneum was the entered bluntly. The bladder flap was created and then a low segment transverse incision was made with a knife on the uterus until the amniotic fluid was encountered. The incision was widened with bandage scissors. A hand was inserted elevating the vertex and then the head delivered with assistance of fundal pressure.. The nares and oropharynx were bulb suctioned, and the remainder of the infant was delivered out of the maternal abdomen. . The cord was doubly clamped and cut, and the handed off to the awaiting resuscitation team in attendance. The placenta was then manually extracted and the interior uterus was cleaned with a dry lap sponge. The uterus was exteriorized, and the incision of the uterus closed with a running interlocking stitch of Monocryl suture. The uterus was replaced in the maternal abdomen. The abdomen was cleared of clots. The peritoneum was closed with 2-0 Vicryl. The fascia was closed with a running suture of #1 Vicryl suture meeting in the midline. The subcutaneous tissue was made hemostatic with Bovie cautery, and the skin approximated using raine. The patient tolerated the procedure well. All sponge and instrument counts were correct. She was taken to the recovery room in stable condition. SIS BRAXTON MD Jun 11, 2017 16:37
[2017-06-11 18:15] VITALS: BP 129/70; PULSE 71; RESP 18
[2017-06-11] MEDS ORDERED: OXYTOCIN 30 UNITS/LR 500 ML IV PRN (18:30)
[2017-06-11] MEDS ORDERED: LANOLIN 7 GM TUBE TOP PRN (18:30)
[2017-06-11] MEDS ORDERED: CARBOPROST 250 MCG INJ IM PRN (18:30)
[2017-06-11] MEDS ORDERED: MISOPROSTOL 200 MCG TAB PR PRN (18:30)
[2017-06-11] MEDS ORDERED: METHYLERGONOVINE 0.2 MG INJ IM PRN (18:30)
[2017-06-11 18:52] VITALS: BP 137/67; PULSE 77; RESP 14
[2017-06-11 20:00] VITALS: BP 120/73; PULSE 79; RESP 20
[2017-06-11] MEDS: SENNA/DOCUSATE NA (8.6MG/50MG) TAB PO SCH (21:00)
[2017-06-11] MEDS: IBUPROFEN 800 MG TAB PO SCH (21:26)
[2017-06-12] VITALS: BP 115/56; PULSE 91; RESP 23
[2017-06-12] MEDS: LACTATED RINGER'S 1,000 ML IV SCH ×7 (00:02→18:22)
[2017-06-12 04:00] VITALS: BP 109/58; PULSE 96; RESP 20
[2017-06-12] MEDS: IBUPROFEN 800 MG TAB PO SCH ×3 (06:00→21:08)
[2017-06-12 08:00] VITALS: BP 114/59; PULSE 96; RESP 18
[2017-06-12 08:05] LABS: BASOPHILS % 0.3 % (0.0-2.0); EOSINOPHILS % 0.3 % (0.0-7.0); HEMATOCRIT 31.3 % (37.0-47.0); HEMOGLOBIN 10.6 g/dl (12.0-16.0); LYMPHOCYTES # 1.2 10^3/ul (0.8-2.9); LYMPHOCYTES % 15.5 % (15.0-51.0); MEAN CORPUSCULAR HGB CONC 33.9 g/dl (32.0-37.0); MEAN CORPUSCULAR VOLUME 88.7 fl (82.0-101.0); MONOCYTE # 0.6 10^3/ul (0.3-0.9); NEUTROPHIL # 6.1 10^3/ul (1.6-7.5); PLATELET COUNT 153 10^3/UL (140-415); RED BLOOD COUNT 3.53 10^6/ul (4.20-5.40); RED CELL DISTRIBUTION WIDTH 13.9 % (11.5-14.5)
[2017-06-12] MEDS: SENNA/DOCUSATE NA (8.6MG/50MG) TAB PO SCH ×2 (09:17→21:08)
[2017-06-12 12:00] VITALS: BP 101/55; RESP 17
[2017-06-12 15:20] VITALS: BP 108/65; PULSE 82; RESP 16
[2017-06-13 04:10] VITALS: BP 123/73; PULSE 95; RESP 18
[2017-06-13] MEDS: IBUPROFEN 800 MG TAB PO SCH ×3 (05:45→21:39)
[2017-06-13 08:00] VITALS: BP 113/55; PULSE 88; RESP 18
[2017-06-13] MEDS: SENNA/DOCUSATE NA (8.6MG/50MG) TAB PO SCH ×2 (09:53→21:07)
[2017-06-13 16:00] VITALS: BP 122/63; PULSE 87; RESP 16
[2017-06-13 16:15] VITALS: BP 122/63; RESP 16
[2017-06-13 19:30] VITALS: BP 109/62; PULSE 87; RESP 19
--- NOTE | 2017-06-13 22:13 | QN ---
Documentation Comment No complaint Afebrile VSS Abdomen soft ND POD #2 Stable Continue present care. SIS BRAXTON MD Jun 13, 2017 22:13
[2017-06-14 04:10] VITALS: BP 118/70; PULSE 77; RESP 19
[2017-06-14] MEDS: IBUPROFEN 800 MG TAB PO SCH ×2 (05:25→14:00)
[2017-06-14 08:02] VITALS: BP 109/61; PULSE 67; RESP 18
[2017-06-14] MEDS: SENNA/DOCUSATE NA (8.6MG/50MG) TAB PO SCH (08:49)
[2017-06-14] MEDS ORDERED: DIPHTH/TET/ACEL PERTUSS (ADULT) 0.5 ML VIAL IM* ONE (09:00)
--- NOTE | 2017-06-14 12:36 | DS ---
Date/Time of Note Date/Time of Note DATE: 06/14/17 TIME: 12:35 Obstetrical Discharge Record Final Diagnosis Final Diagnosis: Term delivered Section Section: Primary Primary Indication Cephalopelvic Disproportion Complications Induction: Yes Condition on Discharge Physical Assessment Voiding: Yes Bowel Movement: Yes Breast: Soft, non-tender, Filling Fundus: Firm Abdomen and Incision: Incision intact Calf Tenderness: No Patient Condition: Stable SIS BRAXTON MD Jun 14, 2017 12:36
== END 2017-06-14 15:30 | disposition home or self-care (01) | DRG 766 ==
LOC: L-D 16:00 → PP1 06-11 18:13
PROVIDERS: ADMIT Obstetrics & Gynecology; ATTEND Obstetrics & Gynecology
PROC: 3E0P7VZ Introduction of Hormone into Female Reproductive, Via Natural or Artificial Opening (ICD-10-PCS; 2017-06-09)
PROC: 10D00Z1 Extraction of Products of Conception, Low, Open Approach (ICD-10-PCS; principal; 2017-06-11 15:30)
DX: O36.63X0 Maternal care for excessive fetal growth, third trimester, not applicable or unspecified (principal); O62.0 Primary inadequate contractions; Z37.0 Single live birth; Z3A.39 39 weeks gestation of pregnancy
CPT/HCPCS: 76816; 76818; 85025; 85610; 85730; 86592; 86850; 86900; 86901; 87340; 90715; 94760; 99464; J0595; J0690; J1885; J2274; J2370; J2405; J2590; J2765; J3010; J7120